=== PATIENT | male | born 1950 | race Caucasian/White ===

== ENCOUNTER 2019-10-12 17:28 | Observation (INO) ==
[2019-10-12] MEDS ORDERED: Nitroglycerin 1 INCH/GM PACKET TP ONE (17:29)
[2019-10-12] MEDS ORDERED: Aspirin 81 MG TAB.CHEW PO ONE (17:29)
[2019-10-12 17:53] LABS: Basophils % 0.4 %; Eosinophils # 0.2 K/mcL (0.0-0.6); Eosinophils % 2.2 %; Hematocrit 36.4 % (37.5-50.1); Hemoglobin 12.1 g/dL (12.9-16.9); Immature Granulocytes % 0.4 % (0-4); Lymphocytes # 1.7 K/mcL (0.6-4.6); Lymphocytes % 23.8 %; Mean Corpuscular HGB Conc 33.2 g/dL (31.6-35.5); Mean Corpuscular Hemoglobin 31.9 pg (28.0-33.3); Mean Platelet Volume 9.4 fL (9.4-12.4); Monocytes # 0.4 K/mcL (0.0-1.3); Monocytes % 5.9 %; Neutrophils # 4.8 K/mcL (1.6-8.9); Platelet Count 198 K/mcL (140-400); Red Blood Count 3.79 M/mcL (4.19-5.50); Red Cell Distribution Width 13.8 % (11.5-14.5); Segmented Neutrophils % 67.3 %; White Blood Count 7.2 K/mcL (4.3-11.1)
[2019-10-12 18:01] LABS: INR 1.1; Prothrombin Time 12.3 Seconds (9.4-12.1)
[2019-10-12 18:03] LABS: Activated Partial Thrombo Time 35.6 Seconds (26.0-36.0)
[2019-10-12 18:11] LABS: Troponin I < 0.03 ng/mL (< 0.04)
[2019-10-12 18:12] LABS: BUN/Creatinine Ratio 16 (6-26); Blood Urea Nitrogen 20 mg/dL (8-23); Calcium 9.4 mg/dL (8.6-10.3); Carbon Dioxide 30 mEq/L (23-29); Chloride 100 mEq/L (98-107); Glucose 118 mg/dL (70-105); Osmolality,Calculated 288 (280-300); Potassium 4.5 mEq/L (3.5-5.1); Sodium 137 mEq/L (136-145); eGFR For African Americans > 60 (> 60); eGFR For Non-African Americans 59 (> 60)
[2019-10-12] MEDS ORDERED: Furosemide 20 MG/2 ML VIAL IVP ONE (18:33)
[2019-10-12] MEDS ORDERED: Naloxone 0.4 MG/ML INJ IVP PRN ×2 (18:53→20:30)
[2019-10-12] MEDS ORDERED: Nitroglycerin 0.4 MG TAB.SUBL SL PRN ×3 (19:00→20:30)
[2019-10-12] MEDS ORDERED: Ipratropium/Albuterol Neb 3 ML IH PRN ×2 (19:00→20:30)
[2019-10-12] MEDS ORDERED: D5% in Water 1,000 ML IVC PRN ×2 (19:01→20:30)
[2019-10-12] MEDS ORDERED: Dextrose Gel 15 GM/37.5 ML TUBE PO PRN ×4 (19:01→20:30)
[2019-10-12] MEDS ORDERED: *HR* Dextrose 50 % in Water (Syg) 50 ML SYRINGE IVP PRN ×2 (19:01→20:30)
[2019-10-12] MEDS: carvediloL 6.25 MG TABLET PO SCH (20:41)
[2019-10-12] MEDS ORDERED: Insulin LISPRO 300 UNITS/3 ML VIAL SQ SCH ×2 (21:00)
[2019-10-12] MEDS ORDERED: Melatonin 3 MG TABLET PO SCH (21:00)
[2019-10-12] MEDS ORDERED: Finasteride 5 MG TABLET PO SCH (21:00)
[2019-10-12] MEDS: Levalbuterol Neb 0.63 MG/3 ML IH SCH (21:17)
[2019-10-12] MEDS ORDERED: *HR* LORazepam 0.5 MG TABLET PO ONE (22:10)
[2019-10-12] MEDS: *HR* Metformin 500 MG TABLET PO SCH (22:23)
[2019-10-12] MEDS: Gabapentin 400 MG CAPSULE PO SCH (22:24)
[2019-10-12] MEDS: *HR* OxyCODONE/APAP 7.5/325 TABLET PO PRN (22:29)
[2019-10-13] MEDS: Levalbuterol Neb 0.63 MG/3 ML IH SCH ×4 (00:44→11:17)
[2019-10-13] MEDS: *HR* OxyCODONE/APAP 7.5/325 TABLET PO PRN ×2 (04:38→10:05)
[2019-10-13] MEDS ORDERED: Insulin LISPRO 300 UNITS/3 ML VIAL SQ SCH (07:30)
[2019-10-13 07:36] LABS: Chol/HDL Ratio 3.3 (0-4.9)
[2019-10-13] MEDS: Insulin LISPRO 300 UNITS/3 ML VIAL SQ SCH ×2 (08:28→12:08)
[2019-10-13] MEDS ORDERED: *HR* Rivaroxaban 10 MG TABLET PO SCH (09:00)
[2019-10-13] MEDS ORDERED: Isosorbide MONOnitrate (24 HR) 30 MG TAB.ER.24H PO SCH (09:00)
[2019-10-13] MEDS ORDERED: Magnesium Oxide 400 MG TABLET PO SCH (09:00)
[2019-10-13] MEDS ORDERED: *HR* SitaGLIPtin 25 MG TABLET PO SCH (09:00)
[2019-10-13] MEDS ORDERED: Cyanocobalamin (B-12) 1,000 MCG TABLET PO SCH (09:00)
[2019-10-13] MEDS ORDERED: Ascorbic Acid 500 MG TABLET PO SCH (09:00)
[2019-10-13] MEDS ORDERED: *HR* Amiodarone 200 MG TABLET PO SCH ×2 (09:00)
[2019-10-13] MEDS ORDERED: Aspirin Enteric Coated 81 MG Tablet PO SCH ×2 (09:00)
[2019-10-13] MEDS ORDERED: Aspirin 81 MG TAB.CHEW PO SCH (09:00)
[2019-10-13] MEDS: carvediloL 6.25 MG TABLET PO SCH (10:04)
[2019-10-13] MEDS: *HR* Metformin 500 MG TABLET PO SCH (10:04)
[2019-10-13] MEDS: Gabapentin 400 MG CAPSULE PO SCH (10:06)
[2019-10-13] MEDS ORDERED: Furosemide 20 MG/2 ML VIAL IVP ONE (10:09)
[2019-10-13 12:14] VITALS: BP 112/63
[2019-10-13] MEDS ORDERED: *HR* Metformin 500 MG TABLET PO SCH (17:00)
[2019-10-14] MEDS ORDERED: Furosemide 20 MG TABLET PO SCH (09:00)
[2019-10-14] MEDS ORDERED: *HR* Rivaroxaban 10 MG TABLET PO SCH (17:00)
[2019-10-16] MEDS ORDERED: TRULICITY 1.5 MG SQ SCH (09:00)
== END 2019-10-13 12:45 | disposition home or self-care (01) ==
LOC: EMEROOPIK 17:28 → INPPIK 17:28
PROVIDERS: ADMIT Family Medicine; ATTEND Family Medicine